=== PATIENT | male | born 1970 | race Caucasian/White ===

== ENCOUNTER 2024-08-21 10:22 | Day surgery (SDC) | payer SELFPAY ==
[2024-08-21] VITALS (11 sets, daily range): BP systolic 129–154; BP diastolic 91–101; PULSE 74–79; RESP 16–18; TEMP 36.6–36.8; O2SAT 95–944; BMI 35.1
--- NOTE | 2024-08-21 | LES_PTH ---
PATHOLOGY RESULTS PATIENT: JARVIS NIEVES [place] [facility] [place][id number] AGE/SX: 53/M ROOM: RE08/21/[address]: Dr. Laura Khan MD : 1970 BED: DIS: 08/21/2024 SPEC #: [id number] RECD: 08/21/24 13:48 STATUS: SHAUNA REArlene #: [id number] STAS: 08/21/24 00:[address]: Laura Khan DEPT: SURGICAL PATHOLOGY RECD BY: Trae Corbin ENTERED: 08/21/24 13:49 SP TYPE: Lesion OTHR DR: Dr. 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 See comment. 08/24/2024 COMMENT The lesion appears to be completely excised in the planes of section examined. The tumor measures 0.4 cm in greatest width and 0.2cm in depth. The tumor is 0.2cm away from the closest peripheral margin and <0.1cm from the deep margin. Clinical correlation and appropriate follow up are necessary. Case has been reviewed in consultation with Dr. Fernandez who concurs with the above diagnosis. IDC:AM MICROSCOPIC DESCRIPTION Slides are reviewed. GROSS DESCRIPTION Received in fixative is one container labeled with the patient's name and designated Neoplasm of uncertain behavior of upper nose. The specimen consists of a piece of cha-white skin measuring 1.0 x 0.7 x 0.3cm. This specimen is inked, serially sectioned and submitted entirely in one cassette. 08/21/2024 TC:0 CPT:41594
--- NOTE | 2024-08-21 11:53 | PCM.HP.BLA ---
History and Physical Date of Admission: 08/21/24 The patient is examined and there are no changes from the previous exam of 08/03/2024. Patient with a neoplasm of the nose. Informed consent was obtained for excisional biopsy of the lesion of the nose.. Assessment & Plan Assessment/Plan (1) Neoplasm of uncertain behavior of skin of nose: PLAN: Plan For excision lesion nose.
[2024-08-21] MEDS: Lidocaine 1% /Epi 1:100 9 ML, Sodium Bicarbonate 1 MEQ OPERA.SITE (12:49)
--- NOTE | 2024-08-21 12:59 | DCINST_ITS ---
Discharge Instructions Dressing / Incision Additional Dressing/Incision Instructions:: Keep the Steri-Strips dry. Keep your back elevated (recliner position) for the next 3-4 nights to decrease swelling and bruising. Take the oral antibiotic (Keflex) 2 times a day until finished. Follow Up Care Please Follow Up With: Laura Khan MD When: 1 to 2 weeks Test Results: Test results from this visit will be discussed in further detail at your follow- up appointment, if applicable. Discharge Plan Admission Attending Provider: Laura Khan Primary Care Provider: Shae Whalen Instructions Print Language: Telugu Discharge Orders/Prescriptions Prescriptions: New cephalexin 500 mg capsule 500 mg PO BID 5 Days Qty: 10 0RF No Action bupropion HCl 150 mg tablet extended release 24 hr 150 mg PO QAM metformin 500 mg tablet extended release 24 hr 1,000 mg PO BID rosuvastatin 40 mg tablet 40 mg PO QDAY lisinopril 5 mg tablet 5 mg PO QDAY Referrals / Follow Up: Shae Whalen MD [Primary Care Provider] - Disposition Disposition (needs filled in before D/C Order can be placed): Home, Self Care
--- NOTE | 2024-08-21 13:01 | PCM.OPRPT ---
Problems Associated Problem List Diagnoses (1) Neoplasm of uncertain behavior of skin of nose: Report of Operation Date of Procedure: 08/21/24 Pre-Operative Diagnosis: Neoplasm of upper nose of uncertain behavior Personal history of skin cancer Post-Operative Diagnosis: Same Surgery/Procedure Performed:: Excision neoplasm upper nose (1.5 cm) Surgeon: Laura Khan Type of Anesthesia: Local Specimen's removed: Same as above Estimated Blood Loss (mL): Minimal Description of Procedure: The patient presents with a previous history of skin cancer closed by a rotation flap in 2020 by another surgeon. He presents today with a new neoplasm noted at the apex of the previous flap on the upper nose. The patient is brought to the operating room and placed on the operating room table in supine position. The nose is prepped and draped in the usual sterile fashion. 1% Xylocaine with epinephrine is used for local anesthetic. Following this, the site of the upper nose is excised and passed off the operative field to be sent to pathology. Hemostasis is controlled with cautery. The site is then closed with interrupted silk suture. Further refinement of the closure is performed with a running chromic suture. Dermabond and Steri-Strips were placed on the incision. He tolerated the procedure well was taken to the recovery area in awake and stable condition. Needle and sponge counts are correct. Complications None Admit VTE Documentation VTE Mechan Device Prophylaxis: None Reason prophylaxis not ordered:: Treatment Not Indicated
== END 2024-08-21 13:22 | disposition home or self-care (01) ==
LOC: SDC 10:30 → AC 10:33
PROVIDERS: PCP Family Medicine; Referring Provider Plastic Surgery; Visit Provider Plastic Surgery
PROC: (CPT 11642; principal; 2024-08-21 11:00)
DX: C76.0 Malignant neoplasm of head, face and neck (principal)
CPT/HCPCS: 11642; 88305